=== PATIENT | male | born 1955 | race Caucasian/White ===

== ENCOUNTER → 2023-12-05 13:45 | Outpatient (REF) | payer OTHER, SELFPAY ==
[2023-12-05 15:53] LABS: Blood Urea Nitrogen 23 mg/dl (9-20); Calcium 10.1 mg/dl (8.4-10.2); Carbon Dioxide 30 mmol/L (22-30); Chloride 101 mmol/L (98-107); Glucose 106 mg/dl (70-99); Potassium 5.6 mmol/L (3.5-5.1); Sodium 139 mmol/L (135-145); eGFR > 60.00
== END ==
LOC: REG 13:45
PROVIDERS: ATTENDING PHYSICIAN Physician Assistant
DX: E87.5 Hyperkalemia (principal)
CPT/HCPCS: 36415; 80048

== ENCOUNTER 2024-07-17 12:53 | Emergency (ER) | payer OTHER, SELFPAY ==
[2024-07-17 13:03] VITALS: BP 115/75
[2024-07-17 13:24] LABS: Hematocrit 41.4 % (39.0-52.0); Mean Corp Hgb Conc. 33.8 g/dL (33.0-37.0); Mean Corpuscular Volume 91.6 fL (80.0-94.0); Mean Platelet Volume 9.2 fL (7.4-10.4); Platelet Count 270 10^3/uL (130-400); Red Blood Cell Count 4.52 10^6/uL (4.70-6.10); Red Cell Dist. Width 13.4 % (11.5-14.5); White Blood Cell Count 10.9 10^3/uL (4.8-10.8)
[2024-07-17 13:39] LABS: ALT (SGPT) 26 U/L (0-50); AST (SGOT) 26 U/L (17-59); Albumin 4.2 g/dl (3.5-5.0); Alkaline Phosphatase 63 U/L (38-126); Blood Urea Nitrogen 17 mg/dl (9-20); Calcium 9.3 mg/dl (8.4-10.2); Carbon Dioxide 28 mmol/L (22-30); Chloride 100 mmol/L (98-107); Glucose 115 mg/dl (70-99); Potassium 4.2 mmol/L (3.5-5.1); Sodium 138 mmol/L (135-145); Total Bilirubin 0.5 mg/dl (0.2-1.3); Total Protein 7.2 g/dl (6.3-8.2); eGFR > 60.00
[2024-07-17 17:13] VITALS: BMI 27.6
[2024-07-17 17:17] VITALS: BP 142/85
--- NOTE | 2024-07-17 17:22 | ED.GENMED ---
History of Present Illness
General
Chief Complaint: Fainting/Passed Out
Time Seen by Provider: 07/17/24 17:04
History of Present Illness
History of Present Illness:
69-year-old male presents to the emergency department for evaluation after a witnessed syncopal event. He reportedly was working outside when he slipped and felt intense pain to the right hamstring. He ambulated inside and sat down on a recliner
chair, his states that shortly thereafter he 'went limp with his head slumped forward', when he awoke he was back to his normal mentation. Since that time he has felt well. He denies any chest pain or shortness of breath. Does note that he
does have 'intense pain' just prior to the reported fainting episode. Of note he is on metoprolol
Past History
Past History
ED Past Medical History: None
ED Past Surgical History: None
Social History
Tobacco: Non-smoker
Alcohol: None
Drug: None
Personal:
Living: with family
Employment: Employed
Family History
Family History: Other (Noncontributory)
Review of Systems
Review of Systems
Allergies reviewed?: Yes
All Other Systems: ROS reviewed and negative except as documented in HPI and ROS
Phy Exam
Physical Exam
Physical Exam:
GEN: Well appearing, NAD, WDWN
HEENT: Oral mucosa moist, no scleral icterus
Cardiac: Regular rate and rhythm, no murmurs
Lung: No respiratory distress, no tachypnea lungs clear to auscultation bilaterally
MSK: No gross deformity or injuries, no palpable deformity to the right hamstring, normal range of motion of the right hip and right knee
Skin: Good color, no pallor or jaundice, no rashes
Neuro: AO x3, moves all extremities freely
Psych: Calm, cooperative
Course
Orders/Labs/Results
Orders:
Orders
07/17/24 12:55
Electrocardiogram (*1) Urgent
Reason for Study: Syncope
EKG- Treatment ONCE
07/17/24 13:15
CBC/No Diff [Complete Blood Count/No Diff] Urgent
Comprehensive Metabolic Panel Urgent
Abnormal Lab Results
07/17/24
13:15
WBC 10.9 H 10^3/uL
(4.8-10.8)
RBC 4.52 L 10^6/uL
(4.70-6.10)
Glucose 115 H mg/dl
(70-99)
07/17/24 13:15
07/17/24 13:15
Vital Signs
Initial and Last Documented VS:
Initial Vital Signs
Temp Pulse Resp BP Pulse Ox
97.3 F 63 16 115/75 98
07/17/24 13:03 07/17/24 13:03 07/17/24 13:03 07/17/24 13:03 07/17/24 13:03
Last Documented Vital Signs
Temp Pulse Resp BP Pulse Ox
97.3 F 70 18 142/85 99
07/17/24 13:03 07/17/24 17:17 07/17/24 17:17 07/17/24 17:17 07/17/24 17:17
MDM/Problems Addressed
MDM/Problems Addressed:
Likely vasovagal syncopal event mediated by pain, worse due to the patient's use of beta-blockers. He does report significant fatigue and exercise intolerance since starting his beta-messi, advised him to discuss with his PCP regarding decreasing
this dosage. Otherwise exam reassuring, doubt hamstring muscle tear clinically. Discussed supportive care
*Critical Care Note
Total Time (30-74mins, 75-104mins- exclusive of procedures): Not Applicable
ED Attending Note
-
Portions of this chart may have been created with voice recognition software.� Occasional wrong word or��sound alike� substitutions may have occurred due to the inherent limitations of voice recognition software.
Discharge Plan
Departure
Patient Disposition: Home (Routine Discharge)
Date of Disposition: 07/17/24
Time of Disposition: 17:24
Patient with high blood pressure during this ER visit?: Yes
Discharge Problem:
Syncope, vasovagal, Right hamstring muscle strain
Instructions: Vasovagal Response (DC)
Prescriptions:
No Action
multivitamin [Daily Multiple] 1 EACH tablet
1 ea PO DAILY
lisinopril 20 MG tablet
20 mg PO DAILY
vitamin B complex 1 TAB tablet
1 tab PO DAILY
fish oil-dha-epa 1 EACH capsule
1 ea PO DAILY
coenzyme Z05-latbuth E 1 CAP capsule
1 cap PO DAILY
bimatoprost [Lumigan] 1 DROP drops
1 drp BOTH EYES DAILY
Referrals:
Carlita Shrestha PA [Family Provider] -
Interventions
Interventions:
*Risk Screen - Suicide Last Done: 07/17/24 13:03
*General Assessment Last Done: 07/17/24 13:03
*Neglect/Abuse Screening Last Done: 07/17/24 17:14
ED- Fall Risk Assessment Last Done: 07/17/24 17:19
*ED COVID-19 Vaccine History Last Done: 07/17/24 13:03
*Nursing Disposition Last Done: 07/17/24 17:42
ED- Cardiac Assessment Last Done: 07/17/24 17:18
ED- Neurological Assessment Last Done: 07/17/24 17:18
Discharge Date and Time
Discharge Date/Time: 07/17/24 17:43
Print Language: EQUATORIAL GUINEAN
== END 2024-07-17 17:43 | disposition home or self-care (01) ==
LOC: EMR 12:53
PROVIDERS: Emergency Medicine; EMERGENCY PHYSICIAN Student in an Organized Health Care Education/Training Program; FAMILY PHYSICIAN Physician Assistant
DX: R55 Syncope and collapse (principal); S76.311A Strain of muscle, fascia and tendon of the posterior muscle group at thigh level, right thigh, initial encounter; X58.XXXA Exposure to other specified factors, initial encounter
CPT/HCPCS: 99283; 80053; 85027; 93005

== ENCOUNTER → 2024-08-01 15:14 | Outpatient (REF) | payer OTHER, SELFPAY ==
[2024-08-01 16:00] LABS: Potassium 5.1 mmol/L (3.5-5.1)
== END ==
LOC: REG 15:14
PROVIDERS: ATTENDING PHYSICIAN Physician Assistant
DX: E78.5 Hyperlipidemia, unspecified (principal)
CPT/HCPCS: 36415; 84132

== ENCOUNTER → 2025-04-22 09:23 | Outpatient (REF) | payer OTHER, SELFPAY | LOC: MRI 3T 09:23 | PROVIDERS: ATTENDING PHYSICIAN Specialist; FAMILY PHYSICIAN Physician Assistant | DX: R97.20 Elevated prostate specific antigen [PSA] (principal) | CPT/HCPCS: 72197; A9575 ==

== ENCOUNTER → 2025-05-22 08:18 | Outpatient (REF) | payer OTHER, SELFPAY | LOC: HWRCS 08:18 | PROVIDERS: ATTENDING PHYSICIAN Internal Medicine Cardiovascular Disease; FAMILY PHYSICIAN Physician Assistant | DX: I10 Essential (primary) hypertension (principal) | CPT/HCPCS: 93306 ==

== ENCOUNTER → 2025-06-01 14:39 | Outpatient (REF) | payer OTHER, SELFPAY | LOC: HWRAD 14:39 | PROVIDERS: ATTENDING PHYSICIAN Internal Medicine Cardiovascular Disease; FAMILY PHYSICIAN Physician Assistant | DX: I77.810 Thoracic aortic ectasia (principal) | CPT/HCPCS: 71250 ==